=== PATIENT | male | born 1950 | race African-American/Black ===

== ENCOUNTER 2017-05-12 17:19 | Emergency (ER) | payer MEDICARE ==
[2017-05-12 17:21] VITALS: BP 161/83; PULSE 71; RESP 18; TEMP 98.5; O2SAT 95
[2017-05-12 18:03] LABS: AUTOMATED NEUTROPHIL # 4.1 TH/MM3 (1.8-7.7); BASOPHIL # 0.1 TH/MM3 (0-0.2); BASOPHIL % 0.9 % (0.0-2.0); EOSINOPHIL # 0.2 TH/MM3 (0-0.4); EOSINOPHIL % 2.4 % (0.0-4.0); HEMATOCRIT 47.7 % (39.0-51.0); HEMOGLOBIN 16.3 GM/DL (13.0-17.0); LYMPH % 24.8 % (9.0-44.0); LYMPHOCYTE # 1.6 TH/MM3 (1.0-4.8); MEAN CELL VOLUME 96.4 FL (80.0-100.0); MEAN CORPUSCULAR HEMOGLOBIN 32.9 PG (27.0-34.0); MEAN CORPUSCULAR HGB CONC 34.2 % (32.0-36.0); MEAN PLATELET VOLUME 9.3 FL (7.0-11.0); MONO % 8.5 % (0.0-8.0); MONOCYTE # 0.5 TH/MM3 (0-0.9); NEUT % 63.4 % (16.0-70.0); PLATELET COUNT 213 TH/MM3 (150-450); RED BLOOD COUNT 4.95 MIL/MM3 (4.50-5.90); RED CELL DISTRIBUTION WIDTH 12.5 % (11.6-17.2); WHITE BLOOD COUNT 6.5 TH/MM3 (4.0-11.0)
[2017-05-12 18:25] LABS: ALBUMIN 3.9 GM/DL (3.4-5.0); ALT (GPT) 35 U/L (12-78); AST (GOT) 24 U/L (15-37); BICARBONATE 26.1 MEQ/L (21.0-32.0); BLOOD UREA NITROGEN 16 MG/DL (7-18); CALCIUM 9.2 MG/DL (8.5-10.1); CHLORIDE 104 MEQ/L (98-107); CREATININE 1.65 MG/DL (0.60-1.30); GLOMERULAR FILTRATION RATE 42 ML/MIN (>89); GLUCOSE,RANDOM 375 MG/DL (74-106); SODIUM (NA) 139 MEQ/L (136-145)
[2017-05-12 18:28] LABS: ALKALINE PHOSPHATASE 138 U/L (45-117); TOTAL BILIRUBIN ADULT 0.6 MG/DL (0.2-1.0); TOTAL PROTEIN 8.4 GM/DL (6.4-8.2)
[2017-05-12] MEDS ORDERED: FURO20TA PO (18:39)
[2017-05-12] MEDS ORDERED: DOXA1TAB36 PO (18:39)
[2017-05-12] MEDS ORDERED: METO100T PO (18:39)
[2017-05-12] MEDS ORDERED: METF500T PO (18:39)
[2017-05-12] MEDS ORDERED: LISI40TA PO (18:39)
[2017-05-12] MEDS ORDERED: ASPI-516 CHEW (18:39)
[2017-05-12] MEDS ORDERED: ATOR40TA16 PO (18:39)
--- NOTE | 2017-05-12 18:47 | PD ---
HPI Chief Complaint: Complaint Time Seen by Provider: 18:34 Travel History International Travel<30 days: No Contact w/Intl Traveler<30days: No Traveled to known affect area: No History of Present Illness HPI 66 y/o male states he went to an urgent care for frequency of urinating and they advised him to come here for further care. He denies any abdominal pain, fever, vomiting or any other concurrent complaints. He states he takes metformin once at night for his sugars and has been on that for a while. Quality is frequent urination. Severity is increasing per patient. Duration is worse over the past couple of days. He does not know his underlying kidney function. PFSH Past Medical History Cancer: Yes (Prostate ) High Cholesterol: Yes Cerebrovascular Accident: Yes (TIA ) Diabetes: Yes Patient Takes Glucophage: Yes Diminished Hearing: No Hypertension: Yes Immunizations Current: No Tetanus Vaccination: Unknown Influenza Vaccination: Yes Past Surgical History Surgical History: No Previous Surgery Social History Alcohol Use: No Tobacco Use: No Substance Use: No Allergies-Medications (Allergen,Severity, Reaction): Coded Allergies: No Known Allergies (Unverified , 05/12/17) Reported Meds & Prescriptions Reported Meds & Active Scripts Active Reported Metformin (Metformin HCl) 500 Mg Tab 500 Mg PO BIDPC Furosemide 20 Mg Tab 20 Mg PO DAILY Atorvastatin (Atorvastatin Calcium) 40 Mg Tab 40 Mg PO HS Doxazosin (Doxazosin Mesylate) 1 Mg Tab 1 Mg PO HS Lisinopril 40 Mg Tab 40 Mg PO DAILY Metoprolol Tartrate 100 Mg Tab 100 Mg PO BID Aspirin 81 Mg Chew 81 Mg CHEW DAILY Review of Systems Except as stated in HPI: all other systems reviewed are Neg Physical Exam Narrative GENERAL: Well-nourished, well-developed patient. SKIN: Warm and dry. HEAD: Normocephalic and atraumatic. EYES: No injection or drainage. ENT: No nasal drainage noted. NECK: Supple, trachea midline. CARDIOVASCULAR: Regular rate and rhythm RESPIRATORY: Breath sounds equal bilaterally. No accessory muscle use. GASTROINTESTINAL: Abdomen soft, non-tender, nondistended. EXTREMITIES: No edema. NEUROLOGICAL: Awake and alert. Motor and sensory grossly within normal limits. Normal speech. Data Data Last Documented VS Vital Signs Date Time Temp Pulse Resp B/P (MAP) Pulse Ox O2 Delivery O2 Flow Rate FiO2 05/12/17 17:21 98.5 71 18 161/83 (109) 95 Orders Orders Urinalysis - C+S If Indicated (05/12/17 17:36) Comprehensive Metabolic Panel (05/12/17 17:36) Complete Blood Count With Diff (05/12/17 17:36) Labs Laboratory Tests Test 05/12/17 17:42 05/12/17 18:40 White Blood Count 6.5 TH/MM3 Red Blood Count 4.95 MIL/MM3 Hemoglobin 16.3 GM/DL Hematocrit 47.7 % Mean Corpuscular Volume 96.4 FL Mean Corpuscular Hemoglobin 32.9 PG Mean Corpuscular Hemoglobin Concent 34.2 % Red Cell Distribution Width 12.5 % Platelet Count 213 TH/MM3 Mean Platelet Volume 9.3 FL Neutrophils (%) (Auto) 63.4 % Lymphocytes (%) (Auto) 24.8 % Monocytes (%) (Auto) 8.5 % Eosinophils (%) (Auto) 2.4 % Basophils (%) (Auto) 0.9 % Neutrophils # (Auto) 4.1 TH/MM3 Lymphocytes # (Auto) 1.6 TH/MM3 Monocytes # (Auto) 0.5 TH/MM3 Eosinophils # (Auto) 0.2 TH/MM3 Basophils # (Auto) 0.1 TH/MM3 CBC Comment DIFF FINAL Differential Comment Blood Urea Nitrogen 16 MG/DL Creatinine 1.65 MG/DL Random Glucose 375 MG/DL Total Protein 8.4 GM/DL Albumin 3.9 GM/DL Calcium Level 9.2 MG/DL Alkaline Phosphatase 138 U/L Aspartate Amino Transf (AST/SGOT) 24 U/L Alanine Aminotransferase (ALT/SGPT) 35 U/L Total Bilirubin 0.6 MG/DL Sodium Level 139 MEQ/L Potassium Level 3.8 MEQ/L Chloride Level 104 MEQ/L Carbon Dioxide Level 26.1 MEQ/L Anion Gap 9 MEQ/L Estimat Glomerular Filtration Rate 42 ML/MIN [facility] [place] Medical Decision Making Medical Screen Exam Complete: Yes Emergency Medical Condition: Yes Medical Record Reviewed: Yes (past history confirmed) Differential Diagnosis UTI, renal failure, hyperglycemia, DKA Narrative Course Awaiting urinalysis from triage results. Patient has a GFR of 42 so he will likely need his metformin changed. His glucose is 375 and he has no signs of DKA Physician Communication Physician Communication dr montilla to follow ua and reeval Jael Howard MD May 12, 2017 18:47
[2017-05-12 19:10] LABS: BILIRUBIN, URINE NEG (NEG); BLOOD, URINE NEG (NEG); GLUCOSE,URINE 1000 mg/dL (NEG); KETONE, URINE NEG (NEG); MUCUS URINE FEW /lpf (OCC); NITRITE,URINE NEG (NEG); PH, URINE 6.5 (5.0-8.5); URINE COLOR LIGHT-YELLOW (YELLW/STRAW); URINE LEUKOCYTE ESTERASE NEG (NEG)
[2017-05-12] MEDS ORDERED: SODIUM CHLORID 0.9% 500 ML INJ 500 ML IV ONE (19:15)
--- NOTE | 2017-05-12 19:15 | PD ---
Physical Exam Narrative General: The patient is a well-developed well-nourished female in no acute distress. Head and Neck exam: Head is normocephalic atraumatic. Eyes: EOMI, pupils are equal round and reactive to light. Nose: Midline septum with pink mucous membranes Mouth: Dentition unremarkable. Moist mucus membranes. Posterior oropharynx is not erythematous. No tonsillar hypertrophy. Uvula midline. Airway patent. Neck: No palpable lymphadenopathy. No nuchal rigidity. No thyromegaly. Cardiovascular: Regular rate and rhythm without murmurs, gallops, or rubs. Lungs: Clear to auscultation bilaterally. No wheezes, rhonchi, or rales. Abdomen: Soft, without tenderness to palpation in all 4 quadrants of the abdomen. No guarding, rebound, or rigidity. Normal bowel sounds are audible. No tenderness on palpation of McBurney's point. Extremities: No clubbing, cyanosis, or edema. 2+ pulses in all 4 extremities. Neurologic Exam: Grossly nonfocal. Skin Exam: No rash noted. Intact skin that is warm and dry. Data Data Last Documented VS Vital Signs Date Time Temp Pulse Resp B/P (MAP) Pulse Ox O2 Delivery O2 Flow Rate FiO2 05/12/17 17:21 98.5 71 18 161/83 (109) 95 Orders Orders Urinalysis - C+S If Indicated (05/12/17 17:36) Comprehensive Metabolic Panel (05/12/17 17:36) Complete Blood Count With Diff (05/12/17 17:36) Sodium Chlorid 0.9% 500 Ml Inj (Ns 500 M (05/12/17 19:15) Bedside Glucose LYNNE.CSUGAR (05/12/17 19:34) Ed Discharge Order (05/12/17 19:46) Labs Laboratory Tests Test 05/12/17 17:42 05/12/17 18:40 White Blood Count 6.5 TH/MM3 Red Blood Count 4.95 MIL/MM3 Hemoglobin 16.3 GM/DL Hematocrit 47.7 % Mean Corpuscular Volume 96.4 FL Mean Corpuscular Hemoglobin 32.9 PG Mean Corpuscular Hemoglobin Concent 34.2 % Red Cell Distribution Width 12.5 % Platelet Count 213 TH/MM3 Mean Platelet Volume 9.3 FL Neutrophils (%) (Auto) 63.4 % Lymphocytes (%) (Auto) 24.8 % Monocytes (%) (Auto) 8.5 % Eosinophils (%) (Auto) 2.4 % Basophils (%) (Auto) 0.9 % Neutrophils # (Auto) 4.1 TH/MM3 Lymphocytes # (Auto) 1.6 TH/MM3 Monocytes # (Auto) 0.5 TH/MM3 Eosinophils # (Auto) 0.2 TH/MM3 Basophils # (Auto) 0.1 TH/MM3 CBC Comment DIFF FINAL Differential Comment Blood Urea Nitrogen 16 MG/DL Creatinine 1.65 MG/DL Random Glucose 375 MG/DL Total Protein 8.4 GM/DL Albumin 3.9 GM/DL Calcium Level 9.2 MG/DL Alkaline Phosphatase 138 U/L Aspartate Amino Transf (AST/SGOT) 24 U/L Alanine Aminotransferase (ALT/SGPT) 35 U/L Total Bilirubin 0.6 MG/DL Sodium Level 139 MEQ/L Potassium Level 3.8 MEQ/L Chloride Level 104 MEQ/L Carbon Dioxide Level 26.1 MEQ/L Anion Gap 9 MEQ/L Estimat Glomerular Filtration Rate 42 ML/MIN Urine Color LIGHT-YELLOW Urine Turbidity CLEAR Urine pH 6.5 Urine Specific [place] 1.018 Urine Protein TRACE mg/dL Urine Glucose (UA) 1000 mg/dL Urine Ketones NEG mg/dL Urine Occult Blood NEG Urine Nitrite NEG Urine Bilirubin NEG Urine Urobilinogen LESS THAN 2.0 MG/DL Urine Leukocyte Esterase NEG Urine RBC LESS THAN 1 /hpf Urine WBC 1 /hpf Urine Mucus FEW /lpf Microscopic Urinalysis Comment CULT NOT INDICATED MDM Medical Record Reviewed: Yes Supervised Visit with JARETH: No Narrative Course During the course of the patients emergency department visit, the patients history, examination, and differential diagnosis were reviewed with the patient. 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 The patient had IV access obtained and blood work sent for analysis. The patient's case was checked out to me by Dr. Howard at the conclusion of her shift. Please see her complete history and physical. The patient is a 66-year-old male who presents to [facility] emergency Department with elevated blood sugar and symptoms of polyuria and polydipsia. The patient is on metformin. The patient apparently went to a local urgent care center prior to arrival was told to get the emergency department for evaluation and treatment. The patient reports that he is on metformin. He recently moved to the area and has established with a new primary care physician , . He reports that when he went to the urgent care center he realized that he was taking his metformin incorrectly. He reports that he was taking it once a day and is supposed to be on it twice a day. He does not check his blood sugar regularly. For the holidays he has had numerous dietary indiscretions and has not been exercising regularly. The patients laboratory studies were reviewed and remarkable for a white count of 6.5, hemoglobin 16.3, platelets 213 with 8.5 monocytes, CMP is remarkable for creatinine of 1.65, glucose 375, alkaline phosphatase 138, total protein 8.4 , albumin 3.9. Urinalysis shows about glucose otherwise unremarkable. It was written for the patient to have administered normal saline a 500 mL bolus , however the patient refused IV access for fluid administration. The patient' s repeat blood sugar was 285. The patient will be discharged home. The patient is instructed regarding the importance of calling his primary care physician in the morning regarding this emergency department visit. He will start taking his medication as it is prescribed instead of once daily. The patient will also check his blood sugar at home. He reports that he does have an Accu-Chek monitor, however he does not check it regularly. He was instructed to start checking his blood sugar as a fasting blood sugar in the morning. He is instructed to write down these blood sugar values to discuss further with his primary care physician. The patient is resting comfortably and feels better, is alert and in no distress. The patients results and examination findings were discussed with the patient. The repeat examination is unremarkable and benign. The history, exam, diagnostic testing, and current condition do not suggest any significant pathology to warrant further testing, continued ED treatment, admission, or surgical evaluation at this point. The vital signs have been stable. The patient does not have uncontrollable pain, intractable vomiting, or other significant symptoms. The patient's condition is stable and appropriate for discharge. The patient will pursue further outpatient evaluation with a primary care physician or other designated or consulting physician as indicated in the discharge instructions. The patient expressed understanding and was agreeable with this plan. Diagnosis Primary Impression: Hyperglycemia Additional Impression: Noncompliance with medication regimen Referrals: Primary Care Physician 1 day Patient Instructions: Diabetic Hyperglycemia (ED), General Instructions Additional Instruction: The patient is instructed regarding the importance of calling his primary care physician in the morning regarding this emergency department visit. He will start taking his medication as it is prescribed instead of once daily. The patient will also check his blood sugar at home. He reports that he does have an Accu-Chek monitor, however he does not check it regularly. He was instructed to start checking his blood sugar as a fasting blood sugar in the morning. He is instructed to write down these blood sugar values to discuss further with his primary care physician. Disposition: 01 DISCHARGE HOME Condition: Stable Teresa Thorne MD May 12, 2017 19:15
== END 2017-05-12 19:55 | disposition home or self-care (01) ==
LOC: NEPE 17:19
DX: E11.65 Type 2 diabetes mellitus with hyperglycemia (principal); E78.00 Pure hypercholesterolemia, unspecified; I10 Essential (primary) hypertension; Z91.14 Patient's other noncompliance with medication regimen; Z79.84 Long term (current) use of oral hypoglycemic drugs
CPT/HCPCS: 80053; 81001; 85025; 99284

== ENCOUNTER 2017-09-11 21:01 | Emergency (ER) | payer MEDICARE ==
[~2017-09-11] VITALS: Ht 177.8 cm; Wt 110.0 kg
[~2017-09-11 21:01] MED LIST: ASPI-516 CHEW; ATOR40TA16 PO; DOXA1TAB36 PO; FURO20TA PO; LISI40TA PO; METF500T PO; METO100T PO
[2017-09-11 21:22] VITALS: BP 175/99; PULSE 77; RESP 18; TEMP 98.5; O2SAT 98
[2017-09-11] MEDS ORDERED: IBUP-232 PO (21:48)
[2017-09-11] MEDS ORDERED: ROBA500T PO (21:48)
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
== END 2017-09-11 22:07 | disposition home or self-care (01) ==
LOC: NEPD 21:01
DX: S39.012A Strain of muscle, fascia and tendon of lower back, initial encounter (principal); E78.00 Pure hypercholesterolemia, unspecified; E11.9 Type 2 diabetes mellitus without complications; I10 Essential (primary) hypertension; I25.2 Old myocardial infarction; V43.52XA Car driver injured in collision with other type car in traffic accident, initial encounter; Z86.73 Personal history of transient ischemic attack (TIA), and cerebral infarction without residual deficits; Z85.46 Personal history of malignant neoplasm of prostate; Z79.82 Long term (current) use of aspirin
CPT/HCPCS: 99282